=== PATIENT | female | born 1980 | race Caucasian/White ===

== ENCOUNTER 2024-09-07 06:38 | Emergency (ER) | payer OTHER ==
[~2024-09-07] VITALS: Ht 162.6 cm; Wt 115.8 kg
[~2024-09-07 06:38] MED LIST: MAGNESIUM27 MG PO; PRENATAL-FOLIC1 EACH PO; VITAMIN D5000 UNIT PO; ZYRTEC10 MG PO
[2024-09-07] MEDS ORDERED: FISH OIL 1,0001 EAC6 PO (06:51)
[2024-09-07] MEDS ORDERED: TRIMETHOPRIM/SULFAMETHOXAZOLE 1 EA TAB PO ONE (07:45)
[2024-09-07] MEDS ORDERED: OXYCODONE/APAP 5/325 TAB PO ONE (07:45)
[2024-09-07] MEDS ORDERED: clindamycin HCL 300 MG CAP PO ONE ×2 (07:45→08:15)
[2024-09-07] MEDS ORDERED: ONDANSETRON 4 MG TAB ODT SL ONE (07:45)
[2024-09-07 08:30] LABS: BASOPHILS 0.4 % (0-2); EOSINOPHILS 0.8 % (0-6); HEMATOCRIT 35.4 % (35.0-50.0); HEMOGLOBIN 12.1 g/dL (12.0-18.0); LYMPHOCYTES 18.6 % (24-44); MCH 28.5 (27-36); MCHC 34.2 g/dl (30-36); MCV 83.1 fl (81-99); MONOCYTES 6.5 % (0-12); NEUTROPHILS 73.7 % (39-80); PLATELET COUNT 241 K/uL (140-440); RBC 4.26 M/ul (4.3-5.7); RDW 14.5 (10.5-15.0)
[2024-09-07] MEDS ORDERED: SODIUM CHLORIDE 0.9% 1,000 ML IV PRN (08:30)
[2024-09-07 08:33] LABS: INR 1.05 (0.80-1.30); PROTIME 13.3 Sec (11.2-14.2)
[2024-09-07 08:35] LABS: PARTIAL THROMBOPLASTIN TIME 26.8 Sec (22.9-41.3)
[2024-09-07 08:45] LABS: ALBUMIN 3.4 g/dL (3.4-5.0); ANION GAP 11.8 (7-21); BILIRUBIN, TOTAL 0.4 ng/dL (0.2-1.0); BUN/CREATININE RATIO 15.06 (6.0-28.6); CALCIUM 8.9 mg/dL (8.5-10.1); CREATININE, SERUM 0.73 mg/dL (0.55-1.02); MAGNESIUM 1.8 mg/dL (1.8-2.4); POTASSIUM 3.8 mmol/L (3.5-5.1); PROTEIN, TOTAL 6.8 g/dL (6.4-8.2)
[2024-09-07] MEDS ORDERED: APIXABAN 5 MG TAB PO ONE (10:15)
[2024-09-07] MEDS ORDERED: PERCOCET 5-3251 EACH PO (10:20)
[2024-09-07] MEDS ORDERED: ELIQUIS5 M1 PO (10:20)
[2024-09-07 10:42] VITALS: BP 124/76
--- NOTE | 2024-09-08 08:06 | EKG ---
[facility] [address] [address] [place] [address] Signed Normal sinus rhythm with sinus arrhythmia Low voltage QRS Cannot rule out Anterior infarct , age undetermined Abnormal ECG No previous ECGs available Confirmed by Marzena Rosales MD () on 09/08/2024 8:05:58 AM Electronically Signed By: MARZENA ROSALES MD 09/08/24 0806 PATIENT NAME: SANDRA PERKINS Electrocardiogram DATE OF : 82 PHYSICIAN: MARZENA ROSALES MD REPORT #: [id number] REPORT IS CONFIDENTIAL AND NOT TO BE RELEASED WITHOUT AUTHORIZATION
== END 2024-09-07 10:37 | disposition home or self-care (01) ==
LOC: ED 06:38
PROVIDERS: Emergency Medicine
DX: I82.621 Acute embolism and thrombosis of deep veins of right upper extremity (principal); Z88.5 Allergy status to narcotic agent; Z79.899 Other long term (current) drug therapy
CPT/HCPCS: 36415; 71260; 80053; 83735; 83880; 84484; 84703; 85025; 85610; 85730; 93005; 93010; 93971; 99284-25; A9270; Q9967

== ENCOUNTER 2024-10-13 17:31 | Emergency (ER) | payer OTHER ==
[~2024-10-13] VITALS: Ht 162.6 cm; Wt 115.8 kg
[~2024-10-13 17:31] MED LIST changes: +ELIQUIS5 M1 PO; +FISH OIL 1,0001 EAC6 PO; +PERCOCET 5-3251 EACH PO
[2024-10-13] MEDS ORDERED: TRAMADOL HCL50 MG PO (21:53)
[2024-10-13] MEDS ORDERED: TRAMADOL HCL 50 MG HOME.PACK PO ONE (22:00)
[2024-10-13] MEDS ORDERED: ONDANSETRON 4 MG HOME.PACK SL ONE (22:00)
[2024-10-13 22:21] VITALS: BP 122/64
== END 2024-10-13 22:25 | disposition home or self-care (01) ==
LOC: ED 17:31
DX: M79.601 Pain in right arm (principal); Z86.718 Personal history of other venous thrombosis and embolism; Z88.5 Allergy status to narcotic agent; Z79.02 Long term (current) use of antithrombotics/antiplatelets
CPT/HCPCS: 93931; 99283-25; A9270